=== PATIENT | female | born 1980 | race Caucasian/White ===

== ENCOUNTER 2016-12-28 19:07 | Emergency (ER) | payer OTHER ==
[~2016-12-28] VITALS: Ht 162.6 cm; Wt 82.6 kg
[2016-12-28 20:16] VITALS: BP 142/74
[2016-12-28] MEDS ORDERED: ACETAMINOPHEN EXTRA STRENGTH 500 MG TAB ONE (20:29)
--- NOTE | 2016-12-28 21:39 | NUR ---
Patient to bed 03.
--- NOTE | 2016-12-28 21:56 | NUR ---
MD CAME AT BEDSIDE TO EVALUATE PT.
[2016-12-28] MEDS ORDERED: NACL 0.9% 1,000 ML IV ONE (22:10)
[2016-12-28] MEDS ORDERED: cefTRIAXone 2,000 MG in DEXTROSE 5% 100 ML IV ONE (22:10)
[2016-12-28] MEDS ORDERED: ONDANSETRON 4 MG/2 ML VIAL IVP ONE (22:10)
[2016-12-28] MEDS ORDERED: cefTRIAXone 2,000 MG VIAL ONE (22:24)
--- NOTE | 2016-12-28 22:28 | NUR ---
GAUGE 18 IV LINE ESTABLISHED TO THE RIGHT AC. NS 1 LITER BOLUS, ZOFRAN 8 MG IVP AND ROCEPHIN 2 GM IVPB GIVEN ORDERED.
[2016-12-28 22:31] LABS: APPEARANCE,URINE HAZY (CLEAR); BILIRUBIN,URINE NEGATIVE (NEGATIVE); BLOOD, URINE 1+ (NEGATIVE); COLOR,URINE YELLOW (YELLOW); LEUKOCYTE ESTERASE ,URINE TRACE (NEGATIVE); NITRITE, URINE NEGATIVE (NEGATIVE); PROTEIN,URINE NEGATIVE (NEGATIVE); UGLUCOSE NEGATIVE (NEGATIVE); UROBILINOGEN,URINE 0.2 EU/dL (0.2 - 1)
[2016-12-28 22:46] LABS: BACTERIA,URINE FEW /HPF (None Seen); RBC,URINE 0-5 (RARE) /HPF (0-5); WBC,URINE 0-5 (RARE) /HPF (0-5)
[2016-12-28 23:53] VITALS: BP 90/49
== END 2016-12-28 23:45 | disposition home or self-care (01) ==
LOC: MED 19:07
DX: N39.0 Urinary tract infection, site not specified (principal)
CPT/HCPCS: 81001; 81025; 96365; 96375; 99284; J0696; J2405; J7030